=== PATIENT | male | born 1965 ===

== ENCOUNTER 2020-12-31 02:28 | Inpatient (IN) | payer OTHER ==
[~2020-12-31] VITALS: Ht 175.3 cm; Wt 90.0 kg
[2020-12-31] MEDS ORDERED: KETOROLAC TROMETHAMINE 30 MG/ML VIAL IVP ONE (02:45)
[2020-12-31] MEDS ORDERED: ACETAMINOPHEN 500 MG TABLET PO ONE (02:45)
[2020-12-31] MEDS ORDERED: ONDANSETRON HCL 4 MG/2 ML VIAL IVP ONE (02:45)
[2020-12-31] MEDS ORDERED: SODIUM CHLORIDE 0.9% 1,000 ML IV ONE (02:45)
[2020-12-31] MEDS ORDERED: 0.9% SODIUM CHLORIDE 10 ML SYRINGE IVP PRN (02:45)
[2020-12-31 03:02] LABS: BASOPHILS % (AUTO) 0.4 % (0.0-2.0); EOSINOPHILS % (AUTO) 0.9 % (1.0-6.0); HEMOGLOBIN 14.8 g/dL (13.5-17.5); LYMPHOCYTES # (AUTO) 0.8 K/uL (1.0-4.8); LYMPHOCYTES % (AUTO) 15.4 % (22.0-44.0); MEAN CORPUSCULAR HEMOGLOBIN 29.3 pg (26.0-34.0); MEAN CORPUSCULAR HGB CONC 33.8 G/dL (31.0-37.0); MEAN CORPUSCULAR VOLUME 87 fL (80-100); MONOCYTES # (AUTO) 0.2 K/uL (0.1-1.0); MONOCYTES % (AUTO) 3.9 % (2.0-9.0); NEUTROPHILS # (AUTO) 4.2 K/uL (1.8-7.7); NEUTROPHILS % (AUTO) 79.4 % (40.0-70.0); PLATELET COUNT (AUTO) 175 K/uL (150-450); RED BLOOD CELL COUNT(AUTO) 5.07 MIL/uL (4.50-5.90); RED CELL DISTRIBUTION WIDTH 13.9 % (11.5-14.5)
[2020-12-31 03:08] LABS: ANION GAP 9 mmol/L (8-16); CALCIUM, TOTAL 8.1 mg/dL (8.8-10.5); CARBON DIOXIDE 27 mmol/L (22-29); CHLORIDE 103 mmol/L (98-107); CREATININE 1.24 mg/dL (0.60-1.30); GLOMERULAR FILTR. RATE CALC > 60 mL/min (>60); GLUCOSE,RANDOM 108 mg/dL (70-110); POTASSIUM 4.1 mmol/L (3.5-5.1); SODIUM SERUM 139 mmol/L (136-145); UREA NITROGEN, BLOOD 18 mg/dL (7-18)
[2020-12-31] MEDS ORDERED: ONDANSETRON HCL 4 MG/2 ML VIAL IVP PRN ×2 (03:15→04:15)
[2020-12-31] MEDS ORDERED: ACETAMINOPHEN 325 MG TABLET PO PRN (03:15)
[2020-12-31 03:21] LABS: LACTIC ACID 0.7 mmol/L (0.4-2.0)
[2020-12-31 03:25] LABS: D-DIMER 0.5 mg/L FEU (0.00-0.50); INR 0.9 (0.9-1.1)
[2020-12-31 03:26] LABS: COVID AG,FIA SOURCE NASOPHARYNGEAL
[2020-12-31 03:27] LABS: ALANINE AMINOTRANSFERASE 17 U/L (12-78); ALKALINE PHOSPHATASE 97 U/L (46-116); ASPARTATE AMINOTRANSFERASE 17 U/L (15-37); BILIRUBIN,TOTAL 0.3 mg/dL (0.1-1.0); C-REACTIVE PROTEIN QUANT 8.34 mg/dL (0.00-0.30); FERRITIN 199 ng/mL (26-388); LACTATE DEHYDROGENASE 211 U/L (85-227); TOTAL PROTEIN, SERUM 7.1 g/dL (6.4-8.2)
[2020-12-31 03:32] LABS: B-TYPE NATRIURETIC PEPTIDE 8 pg/mL (0-100)
[2020-12-31 03:46] LABS: CREATINE KINASE, TOTAL ONLY 58 U/L (39-308)
[2020-12-31 05:13] LABS: AMPHET/METH SCREEN,URINE NEGATIVE (NEGATIVE); BARBITURATE SCREEN, URINE NEGATIVE (NEGATIVE); BENZODIAZEPINES SCREEN,URINE NEGATIVE (NEGATIVE); CANNABINOID SCREEN,URINE NEGATIVE (NEGATIVE); COCAINE SCREEN,URINE NEGATIVE (NEGATIVE); METHADONE SCREEN, URINE NEGATIVE (NEGATIVE); OPIATE SCREEN,URINE NEGATIVE (NEGATIVE)
[2020-12-31 05:19] LABS: APPEARANCE,URINE CLEAR (CLEAR); BILIRUBIN,URINE NEGATIVE (NEGATIVE); GLUCOSE, URINE (UA) NEGATIVE (NEGATIVE); KETONES,URINE NEGATIVE (NEGATIVE); LEUKOCYTE ESTERASE ,URINE NEGATIVE (NEGATIVE); NITRATE,URINE NEGATIVE (NEGATIVE); OCCULT BLOOD,URINE TRACE (NEGATIVE); PROTEIN,URINE NEGATIVE (NEGATIVE); UROBILINOGEN,URINE 0.2 mg/dL (<=1.0)
[2020-12-31 05:26] LABS: PHENCYCLIDINE SCREEN,URINE NEGATIVE (NEGATIVE)
[2020-12-31 05:40] LABS: RBC,URINE 0-2 /HPF (0-2)
[2020-12-31 05:41] LABS: BACTERIA,URINE None Seen /HPF (None Seen); WBC,URINE None Seen /HPF (0-5)
[2020-12-31] MEDS ORDERED: HEPARIN SODIUM,PORCINE 5,000 UNITS/ML VIAL SQ SCH (08:00)
[2020-12-31] MEDS: ACETAMINOPHEN 325 MG TABLET PO PRN ×3 (09:24→20:32)
[2020-12-31 09:59] VITALS: BP 90/59
[2020-12-31] MEDS ORDERED: HEPARIN SODIUM,PORCINE 5,000 UNITS/ML VIAL IVP PRN (10:15)
[2020-12-31 10:58] LABS: BASOPHILS % (AUTO) 0.4 % (0.0-2.0); EOSINOPHILS % (AUTO) 0.7 % (1.0-6.0); HEMATOCRIT 42.7 % (41-53); HEMOGLOBIN 14.2 g/dL (13.5-17.5); LYMPHOCYTES # (AUTO) 0.9 K/uL (1.0-4.8); LYMPHOCYTES % (AUTO) 15.3 % (22.0-44.0); MEAN CORPUSCULAR HEMOGLOBIN 29.1 pg (26.0-34.0); MEAN CORPUSCULAR HGB CONC 33.3 G/dL (31.0-37.0); MEAN CORPUSCULAR VOLUME 87 fL (80-100); MONOCYTES # (AUTO) 0.3 K/uL (0.1-1.0); MONOCYTES % (AUTO) 5.1 % (2.0-9.0); NEUTROPHILS # (AUTO) 4.5 K/uL (1.8-7.7); NEUTROPHILS % (AUTO) 78.5 % (40.0-70.0); PLATELET COUNT (AUTO) 171 K/uL (150-450); RED BLOOD CELL COUNT(AUTO) 4.89 MIL/uL (4.50-5.90); RED CELL DISTRIBUTION WIDTH 14.5 % (11.5-14.5)
[2020-12-31] MEDS ORDERED: REMDESIVIR 200 MG in SODIUM CHLORIDE 0.9% 250 ML IV ONE (11:00)
[2020-12-31 11:13] LABS: INR 0.9 (0.9-1.1); PROTHROMBIN TIME 10.1 SEC (9.4-11.6)
[2020-12-31] MEDS: HEPARIN SODIUM 25000 UNITS/D5W 250 ML IV PRN ×2 (11:26→17:43)
[2020-12-31] MEDS ORDERED: DEXAMETHASONE 4 MG TABLET PO ONE (15:15)
[2020-12-31] MEDS: HEPARIN SODIUM,PORCINE 5,000 UNITS/ML VIAL IVP PRN (17:41)
[2020-12-31 20:30] VITALS: BP 128/63
[2021-01-01] MEDS: MELATONIN 3 MG TABLET PO PRN ×2 (00:45→21:19)
[2021-01-01 05:01] VITALS: BP 124/82
[2021-01-01 06:44] LABS: BASOPHILS % (AUTO) 0.1 % (0.0-2.0); EOSINOPHILS % (AUTO) 0 % (1.0-6.0); HEMATOCRIT 44.2 % (41-53); HEMOGLOBIN 14.9 g/dL (13.5-17.5); LYMPHOCYTES # (AUTO) 0.6 K/uL (1.0-4.8); LYMPHOCYTES % (AUTO) 11.7 % (22.0-44.0); MEAN CORPUSCULAR HGB CONC 33.6 G/dL (31.0-37.0); MEAN CORPUSCULAR VOLUME 86 fL (80-100); MONOCYTES # (AUTO) 0.1 K/uL (0.1-1.0); MONOCYTES % (AUTO) 2.2 % (2.0-9.0); NEUTROPHILS # (AUTO) 4.4 K/uL (1.8-7.7); PLATELET COUNT (AUTO) 213 K/uL (150-450); RED BLOOD CELL COUNT(AUTO) 5.12 MIL/uL (4.50-5.90); RED CELL DISTRIBUTION WIDTH 14.2 % (11.5-14.5)
[2021-01-01 06:58] LABS: D-DIMER 0.3 mg/L FEU (0.00-0.50)
[2021-01-01 07:18] LABS: ALANINE AMINOTRANSFERASE 18 U/L (12-78); ALBUMIN 2.5 g/dL (3.4-5.0); ALKALINE PHOSPHATASE 91 U/L (46-116); ANION GAP 11 mmol/L (8-16); ASPARTATE AMINOTRANSFERASE 15 U/L (15-37); BILIRUBIN,TOTAL 0.2 mg/dL (0.1-1.0); C-REACTIVE PROTEIN QUANT 13.92 mg/dL (0.00-0.30); CALCIUM, TOTAL 8.4 mg/dL (8.8-10.5); CARBON DIOXIDE 27 mmol/L (22-29); CHLORIDE 105 mmol/L (98-107); CREATININE 0.93 mg/dL (0.60-1.30); FERRITIN 236 ng/mL (26-388); GLOMERULAR FILTR. RATE CALC > 60 mL/min (>60); GLUCOSE,RANDOM 143 mg/dL (70-110); LACTATE DEHYDROGENASE 194 U/L (85-227); POTASSIUM 4.6 mmol/L (3.5-5.1); SODIUM SERUM 143 mmol/L (136-145); UREA NITROGEN, BLOOD 16 mg/dL (7-18)
[2021-01-01] MEDS: DEXAMETHASONE 4 MG TABLET PO SCH (08:02)
[2021-01-01] MEDS: HEPARIN SODIUM 25000 UNITS/D5W 250 ML IV PRN ×2 (08:03→17:10)
[2021-01-01 08:09] VITALS: BP 113/72
[2021-01-01] MEDS: DOCUSATE SODIUM 100 MG CAPSULE PO PRN ×2 (10:26→21:19)
[2021-01-01] MEDS: BENZONATATE 100 MG CAPSULE PO PRN ×2 (10:26→21:19)
[2021-01-01] MEDS: REMDESIVIR 100 MG in SODIUM CHLORIDE 0.9% 250 ML IV SCH (10:26)
[2021-01-01] MEDS: HEPARIN SODIUM,PORCINE 5,000 UNITS/ML VIAL IVP PRN (16:59)
[2021-01-01 19:55] VITALS: BP_SYST 123; BP_SYST 133; BP_DIAS 75; BP_DIAS 82
[2021-01-01] MEDS: FAMOTIDINE 20 MG TABLET PO SCH (21:15)
[2021-01-01] MEDS: ACETAMINOPHEN 325 MG TABLET PO PRN (21:20)
[2021-01-02] MEDS: HEPARIN SODIUM,PORCINE 5,000 UNITS/ML VIAL IVP PRN ×3 (00:37→18:18)
[2021-01-02] MEDS: HEPARIN SODIUM 25000 UNITS/D5W 250 ML IV PRN ×3 (00:38→18:28)
[2021-01-02] MEDS: ACETAMINOPHEN 325 MG TABLET PO PRN ×3 (03:28→18:21)
[2021-01-02 04:00] VITALS: BP 117/80
[2021-01-02 06:50] LABS: BASOPHILS % (AUTO) 0.4 % (0.0-2.0); EOSINOPHILS % (AUTO) 0 % (1.0-6.0); HEMATOCRIT 43.8 % (41-53); HEMOGLOBIN 14.8 g/dL (13.5-17.5); LYMPHOCYTES # (AUTO) 0.8 K/uL (1.0-4.8); LYMPHOCYTES % (AUTO) 7.6 % (22.0-44.0); MEAN CORPUSCULAR HEMOGLOBIN 29.3 pg (26.0-34.0); MEAN CORPUSCULAR HGB CONC 33.7 G/dL (31.0-37.0); MEAN CORPUSCULAR VOLUME 87 fL (80-100); MONOCYTES # (AUTO) 0.4 K/uL (0.1-1.0); MONOCYTES % (AUTO) 4.1 % (2.0-9.0); NEUTROPHILS # (AUTO) 9.1 K/uL (1.8-7.7); PLATELET COUNT (AUTO) 259 K/uL (150-450); RED BLOOD CELL COUNT(AUTO) 5.04 MIL/uL (4.50-5.90); RED CELL DISTRIBUTION WIDTH 14.2 % (11.5-14.5)
[2021-01-02 06:57] LABS: NEUTROPHILS % (AUTO) 87.9 % (40.0-70.0)
[2021-01-02 07:17] LABS: ALANINE AMINOTRANSFERASE 18 U/L (12-78); ALBUMIN 2.6 g/dL (3.4-5.0); ALKALINE PHOSPHATASE 84 U/L (46-116); ANION GAP 8 mmol/L (8-16); ASPARTATE AMINOTRANSFERASE 13 U/L (15-37); BILIRUBIN,TOTAL 0.1 mg/dL (0.1-1.0); C-REACTIVE PROTEIN QUANT 6.01 mg/dL (0.00-0.30); CALCIUM, TOTAL 8.5 mg/dL (8.8-10.5); CARBON DIOXIDE 27 mmol/L (22-29); CHLORIDE 107 mmol/L (98-107); CREATININE 0.93 mg/dL (0.60-1.30); FERRITIN 261 ng/mL (26-388); GLOMERULAR FILTR. RATE CALC > 60 mL/min (>60); GLUCOSE,RANDOM 132 mg/dL (70-110); LACTATE DEHYDROGENASE 172 U/L (85-227); POTASSIUM 4.1 mmol/L (3.5-5.1); SODIUM SERUM 142 mmol/L (136-145); TOTAL PROTEIN, SERUM 6.9 g/dL (6.4-8.2); UREA NITROGEN, BLOOD 19 mg/dL (7-18)
[2021-01-02] MEDS: BENZONATATE 100 MG CAPSULE PO PRN (08:31)
[2021-01-02] MEDS: DOCUSATE SODIUM 100 MG CAPSULE PO PRN (08:31)
[2021-01-02] MEDS: FAMOTIDINE 20 MG TABLET PO SCH ×2 (08:31→20:32)
[2021-01-02] MEDS: DEXAMETHASONE 4 MG TABLET PO SCH (08:31)
[2021-01-02 08:36] VITALS: BP 127/86
[2021-01-02 08:51] LABS: D-DIMER 0.26 mg/L FEU (0.00-0.50)
[2021-01-02] MEDS: REMDESIVIR 100 MG in SODIUM CHLORIDE 0.9% 250 ML IV SCH (11:37)
[2021-01-02] MEDS: BISACODYL 5 MG EC TABLET PO PRN (13:18)
[2021-01-02] MEDS: GABAPENTIN 300 MG CAPSULE PO SCH (20:32)
[2021-01-02 20:42] VITALS: BP 124/68
[2021-01-03 04:28] VITALS: BP 112/62
[2021-01-03] MEDS: HEPARIN SODIUM 25000 UNITS/D5W 250 ML IV PRN ×3 (05:24→20:24)
[2021-01-03 06:51] LABS: BASOPHILS % (AUTO) 0.2 % (0.0-2.0); EOSINOPHILS % (AUTO) 0 % (1.0-6.0); HEMATOCRIT 42.9 % (41-53); HEMOGLOBIN 14.4 g/dL (13.5-17.5); LYMPHOCYTES # (AUTO) 1.2 K/uL (1.0-4.8); LYMPHOCYTES % (AUTO) 11.6 % (22.0-44.0); MEAN CORPUSCULAR HEMOGLOBIN 28.9 pg (26.0-34.0); MEAN CORPUSCULAR HGB CONC 33.6 G/dL (31.0-37.0); MEAN CORPUSCULAR VOLUME 86 fL (80-100); MONOCYTES # (AUTO) 0.6 K/uL (0.1-1.0); MONOCYTES % (AUTO) 5.8 % (2.0-9.0); NEUTROPHILS # (AUTO) 8.8 K/uL (1.8-7.7); NEUTROPHILS % (AUTO) 82.4 % (40.0-70.0); PLATELET COUNT (AUTO) 283 K/uL (150-450); RED BLOOD CELL COUNT(AUTO) 4.99 MIL/uL (4.50-5.90); RED CELL DISTRIBUTION WIDTH 14.1 % (11.5-14.5)
[2021-01-03 07:04] LABS: D-DIMER 0.26 mg/L FEU (0.00-0.50)
[2021-01-03 07:21] LABS: ALANINE AMINOTRANSFERASE 25 U/L (12-78); ALBUMIN 2.5 g/dL (3.4-5.0); ALKALINE PHOSPHATASE 77 U/L (46-116); ANION GAP 9 mmol/L (8-16); ASPARTATE AMINOTRANSFERASE 20 U/L (15-37); BILIRUBIN,TOTAL 0.2 mg/dL (0.1-1.0); C-REACTIVE PROTEIN QUANT 2.21 mg/dL (0.00-0.30); CALCIUM, TOTAL 8.4 mg/dL (8.8-10.5); CARBON DIOXIDE 27 mmol/L (22-29); CHLORIDE 107 mmol/L (98-107); FERRITIN 219 ng/mL (26-388); GLOMERULAR FILTR. RATE CALC > 60 mL/min (>60); GLUCOSE,RANDOM 119 mg/dL (70-110); LACTATE DEHYDROGENASE 187 U/L (85-227); POTASSIUM 4.2 mmol/L (3.5-5.1); SODIUM SERUM 143 mmol/L (136-145); TOTAL PROTEIN, SERUM 6.6 g/dL (6.4-8.2); UREA NITROGEN, BLOOD 20 mg/dL (7-18)
[2021-01-03] MEDS: DEXAMETHASONE 4 MG TABLET PO SCH (08:04)
[2021-01-03] MEDS: FAMOTIDINE 20 MG TABLET PO SCH ×2 (08:04→20:17)
[2021-01-03] MEDS: HEPARIN SODIUM,PORCINE 5,000 UNITS/ML VIAL IVP PRN (08:09)
[2021-01-03 08:21] VITALS: BP 127/69
[2021-01-03] MEDS: REMDESIVIR 100 MG in SODIUM CHLORIDE 0.9% 250 ML IV SCH (11:07)
[2021-01-03] MEDS ORDERED: MULTIVITAMINS, THERAPEUTIC TABLET PO ONE (14:45)
[2021-01-03] MEDS: DOCUSATE SODIUM 100 MG CAPSULE PO PRN (20:16)
[2021-01-03] MEDS: GABAPENTIN 300 MG CAPSULE PO SCH (20:17)
[2021-01-03 20:50] VITALS: BP 132/78
[2021-01-03] MEDS: ACETAMINOPHEN 325 MG TABLET PO PRN (21:03)
[2021-01-04 06:41] LABS: BASOPHILS % (AUTO) 0.1 % (0.0-2.0); EOSINOPHILS % (AUTO) 0.1 % (1.0-6.0); HEMATOCRIT 44.7 % (41-53); HEMOGLOBIN 14.7 g/dL (13.5-17.5); LYMPHOCYTES # (AUTO) 1.7 K/uL (1.0-4.8); LYMPHOCYTES % (AUTO) 14.6 % (22.0-44.0); MEAN CORPUSCULAR HEMOGLOBIN 28.5 pg (26.0-34.0); MEAN CORPUSCULAR HGB CONC 32.9 G/dL (31.0-37.0); MEAN CORPUSCULAR VOLUME 86 fL (80-100); MONOCYTES % (AUTO) 8.7 % (2.0-9.0); NEUTROPHILS # (AUTO) 8.9 K/uL (1.8-7.7); NEUTROPHILS % (AUTO) 76.5 % (40.0-70.0); PLATELET COUNT (AUTO) 335 K/uL (150-450); RED BLOOD CELL COUNT(AUTO) 5.17 MIL/uL (4.50-5.90)
[2021-01-04 06:51] LABS: D-DIMER 0.2 mg/L FEU (0.00-0.50)
[2021-01-04 07:05] LABS: ALANINE AMINOTRANSFERASE 74 U/L (12-78); ALBUMIN 2.5 g/dL (3.4-5.0); ALKALINE PHOSPHATASE 80 U/L (46-116); ANION GAP 7 mmol/L (8-16); ASPARTATE AMINOTRANSFERASE 41 U/L (15-37); BILIRUBIN,TOTAL 0.2 mg/dL (0.1-1.0); C-REACTIVE PROTEIN QUANT 0.96 mg/dL (0.00-0.30); CALCIUM, TOTAL 8.3 mg/dL (8.8-10.5); CARBON DIOXIDE 29 mmol/L (22-29); CHLORIDE 106 mmol/L (98-107); FERRITIN 180 ng/mL (26-388); GLOMERULAR FILTR. RATE CALC > 60 mL/min (>60); GLUCOSE,RANDOM 116 mg/dL (70-110); LACTATE DEHYDROGENASE 156 U/L (85-227); POTASSIUM 4.2 mmol/L (3.5-5.1); SODIUM SERUM 142 mmol/L (136-145); TOTAL PROTEIN, SERUM 6.4 g/dL (6.4-8.2); UREA NITROGEN, BLOOD 24 mg/dL (7-18)
[2021-01-04 08:16] VITALS: BP 115/76
[2021-01-04] MEDS: MULTIVITAMINS, THERAPEUTIC TABLET PO SCH (09:33)
[2021-01-04] MEDS: FAMOTIDINE 20 MG TABLET PO SCH ×2 (09:33→20:00)
[2021-01-04] MEDS: DEXAMETHASONE 4 MG TABLET PO SCH (09:33)
[2021-01-04] MEDS: HEPARIN SODIUM 25000 UNITS/D5W 250 ML IV PRN (09:39)
[2021-01-04] MEDS: DOCUSATE SODIUM 100 MG CAPSULE PO PRN ×2 (10:32→20:00)
[2021-01-04] MEDS: BISACODYL 5 MG EC TABLET PO PRN (10:32)
[2021-01-04] MEDS: GABAPENTIN 300 MG CAPSULE PO SCH (20:00)
[2021-01-04 20:19] VITALS: BP 140/83
[2021-01-05] MEDS: HEPARIN SODIUM 25000 UNITS/D5W 250 ML IV PRN ×2 (00:03→15:48)
[2021-01-05 05:01] VITALS: BP 124/72
[2021-01-05 07:33] VITALS: BP 101/55
[2021-01-05] MEDS: FAMOTIDINE 20 MG TABLET PO SCH ×2 (09:00→20:29)
[2021-01-05] MEDS: DEXAMETHASONE 4 MG TABLET PO SCH (09:00)
[2021-01-05] MEDS: MULTIVITAMINS, THERAPEUTIC TABLET PO SCH (09:00)
[2021-01-05] MEDS: GABAPENTIN 300 MG CAPSULE PO SCH (20:29)
[2021-01-05 20:37] VITALS: BP 130/74
[2021-01-06 06:06] VITALS: BP 132/83
[2021-01-06 07:38] VITALS: BP 121/80
[2021-01-06] MEDS: FAMOTIDINE 20 MG TABLET PO SCH ×2 (08:31→20:21)
[2021-01-06] MEDS: MULTIVITAMINS, THERAPEUTIC TABLET PO SCH (08:31)
[2021-01-06] MEDS: DEXAMETHASONE 4 MG TABLET PO SCH (08:31)
[2021-01-06] MEDS: HEPARIN SODIUM 25000 UNITS/D5W 250 ML IV PRN (08:33)
[2021-01-06 15:40] VITALS: BP 127/78
[2021-01-06 20:15] VITALS: BP 131/88
[2021-01-06] MEDS: GABAPENTIN 300 MG CAPSULE PO SCH (20:21)
[2021-01-06] MEDS: APIXABAN 2.5 MG TABLET PO SCH (20:21)
[2021-01-06] MEDS: MELATONIN 3 MG TABLET PO PRN (20:26)
[2021-01-07 05:21] VITALS: BP 126/82
[2021-01-07 08:09] VITALS: BP 124/58
[2021-01-07] MEDS: APIXABAN 2.5 MG TABLET PO SCH ×2 (08:30→20:38)
[2021-01-07] MEDS: MULTIVITAMINS, THERAPEUTIC TABLET PO SCH (08:31)
[2021-01-07] MEDS: FAMOTIDINE 20 MG TABLET PO SCH ×2 (08:31→20:38)
[2021-01-07] MEDS: DEXAMETHASONE 4 MG TABLET PO SCH (08:31)
[2021-01-07] MEDS: ACETAMINOPHEN 325 MG TABLET PO PRN (16:11)
[2021-01-07 20:23] VITALS: BP 119/67
[2021-01-07] MEDS: GABAPENTIN 300 MG CAPSULE PO SCH (20:38)
[2021-01-07] MEDS: MELATONIN 3 MG TABLET PO PRN (20:44)
[2021-01-08 05:10] VITALS: BP 116/75
[2021-01-08 07:39] VITALS: BP 105/63
[2021-01-08] MEDS: APIXABAN 2.5 MG TABLET PO SCH ×2 (08:49→20:52)
[2021-01-08] MEDS: DEXAMETHASONE 4 MG TABLET PO SCH (08:49)
[2021-01-08] MEDS: MULTIVITAMINS, THERAPEUTIC TABLET PO SCH (08:49)
[2021-01-08] MEDS: FAMOTIDINE 20 MG TABLET PO SCH ×2 (08:49→20:52)
[2021-01-08 20:38] VITALS: BP 127/77
[2021-01-08] MEDS: GABAPENTIN 300 MG CAPSULE PO SCH (20:52)
[2021-01-09 07:32] LABS: BASOPHILS % (AUTO) 0.5 % (0.0-2.0); EOSINOPHILS % (AUTO) 0.2 % (1.0-6.0); HEMATOCRIT 47.7 % (41-53); HEMOGLOBIN 15.8 g/dL (13.5-17.5); LYMPHOCYTES # (AUTO) 1.6 K/uL (1.0-4.8); LYMPHOCYTES % (AUTO) 8.8 % (22.0-44.0); MEAN CORPUSCULAR HEMOGLOBIN 28.9 pg (26.0-34.0); MEAN CORPUSCULAR HGB CONC 33.1 G/dL (31.0-37.0); MEAN CORPUSCULAR VOLUME 87 fL (80-100); MONOCYTES # (AUTO) 1.5 K/uL (0.1-1.0); MONOCYTES % (AUTO) 8.4 % (2.0-9.0); NEUTROPHILS # (AUTO) 15.1 K/uL (1.8-7.7); NEUTROPHILS % (AUTO) 82.1 % (40.0-70.0); PLATELET COUNT (AUTO) 409 K/uL (150-450); RED BLOOD CELL COUNT(AUTO) 5.47 MIL/uL (4.50-5.90); RED CELL DISTRIBUTION WIDTH 14.3 % (11.5-14.5)
[2021-01-09 07:56] LABS: ALANINE AMINOTRANSFERASE 76 U/L (12-78); ALBUMIN 2.6 g/dL (3.4-5.0); ALKALINE PHOSPHATASE 94 U/L (46-116); ANION GAP 4 mmol/L (8-16); ASPARTATE AMINOTRANSFERASE 15 U/L (15-37); BILIRUBIN,TOTAL 0.4 mg/dL (0.1-1.0); CALCIUM, TOTAL 8.6 mg/dL (8.8-10.5); CARBON DIOXIDE 32 mmol/L (22-29); CHLORIDE 101 mmol/L (98-107); CREATININE 1.07 mg/dL (0.60-1.30); GLOMERULAR FILTR. RATE CALC > 60 mL/min (>60); GLUCOSE,RANDOM 114 mg/dL (70-110); POTASSIUM 4.9 mmol/L (3.5-5.1); SODIUM SERUM 137 mmol/L (136-145); TOTAL PROTEIN, SERUM 6.4 g/dL (6.4-8.2); UREA NITROGEN, BLOOD 23 mg/dL (7-18)
[2021-01-09 08:09] VITALS: BP 114/52
[2021-01-09] MEDS: APIXABAN 2.5 MG TABLET PO SCH ×2 (09:00→21:27)
[2021-01-09] MEDS: DEXAMETHASONE 4 MG TABLET PO SCH (09:00)
[2021-01-09] MEDS: MULTIVITAMINS, THERAPEUTIC TABLET PO SCH (09:00)
[2021-01-09] MEDS: FAMOTIDINE 20 MG TABLET PO SCH ×2 (09:00→21:27)
[2021-01-09 20:06] VITALS: BP 117/62
[2021-01-09] MEDS: GABAPENTIN 300 MG CAPSULE PO SCH (21:27)
[2021-01-09] MEDS: BISACODYL 5 MG EC TABLET PO PRN (21:40)
[2021-01-10 05:31] VITALS: BP 102/59
[2021-01-10 06:45] LABS: BASOPHILS % (AUTO) 0.1 % (0.0-2.0); EOSINOPHILS % (AUTO) 1.6 % (1.0-6.0); HEMATOCRIT 45.8 % (41-53); HEMOGLOBIN 15.2 g/dL (13.5-17.5); LYMPHOCYTES % (AUTO) 16.9 % (22.0-44.0); MEAN CORPUSCULAR HEMOGLOBIN 28.9 pg (26.0-34.0); MEAN CORPUSCULAR HGB CONC 33.2 G/dL (31.0-37.0); MEAN CORPUSCULAR VOLUME 87 fL (80-100); MONOCYTES % (AUTO) 8.4 % (2.0-9.0); NEUTROPHILS # (AUTO) 8.6 K/uL (1.8-7.7); PLATELET COUNT (AUTO) 371 K/uL (150-450); RED BLOOD CELL COUNT(AUTO) 5.26 MIL/uL (4.50-5.90); RED CELL DISTRIBUTION WIDTH 14.2 % (11.5-14.5)
[2021-01-10 07:13] LABS: ALANINE AMINOTRANSFERASE 62 U/L (12-78); ALBUMIN 2.4 g/dL (3.4-5.0); ALKALINE PHOSPHATASE 87 U/L (46-116); ANION GAP 8 mmol/L (8-16); ASPARTATE AMINOTRANSFERASE 12 U/L (15-37); BILIRUBIN,TOTAL 0.3 mg/dL (0.1-1.0); CALCIUM, TOTAL 8.2 mg/dL (8.8-10.5); CARBON DIOXIDE 28 mmol/L (22-29); CHLORIDE 101 mmol/L (98-107); CREATININE 0.94 mg/dL (0.60-1.30); GLOMERULAR FILTR. RATE CALC > 60 mL/min (>60); GLUCOSE,RANDOM 94 mg/dL (70-110); POTASSIUM 4.5 mmol/L (3.5-5.1); SODIUM SERUM 137 mmol/L (136-145); UREA NITROGEN, BLOOD 24 mg/dL (7-18)
[2021-01-10 07:29] VITALS: BP 106/59
[2021-01-10] MEDS: DEXAMETHASONE 4 MG TABLET PO SCH (08:27)
[2021-01-10] MEDS: FAMOTIDINE 20 MG TABLET PO SCH ×2 (08:27→21:13)
[2021-01-10] MEDS: APIXABAN 2.5 MG TABLET PO SCH ×2 (08:27→21:13)
[2021-01-10] MEDS: MULTIVITAMINS, THERAPEUTIC TABLET PO SCH (08:27)
[2021-01-10] MEDS: ACETAMINOPHEN 325 MG TABLET PO PRN (08:38)
[2021-01-10] MEDS: GABAPENTIN 300 MG CAPSULE PO SCH (21:13)
[2021-01-10 21:15] VITALS: BP 116/78
[2021-01-11 04:00] VITALS: BP 112/72
[2021-01-11 05:50] LABS: BASOPHILS % (AUTO) 0.2 % (0.0-2.0); EOSINOPHILS % (AUTO) 0 % (1.0-6.0); HEMATOCRIT 46.7 % (41-53); HEMOGLOBIN 15.5 g/dL (13.5-17.5); LYMPHOCYTES # (AUTO) 0.9 K/uL (1.0-4.8); LYMPHOCYTES % (AUTO) 5.4 % (22.0-44.0); MEAN CORPUSCULAR HEMOGLOBIN 28.7 pg (26.0-34.0); MEAN CORPUSCULAR HGB CONC 33.2 G/dL (31.0-37.0); MEAN CORPUSCULAR VOLUME 87 fL (80-100); MONOCYTES # (AUTO) 0.9 K/uL (0.1-1.0); MONOCYTES % (AUTO) 5.7 % (2.0-9.0); NEUTROPHILS # (AUTO) 14.5 K/uL (1.8-7.7); PLATELET COUNT (AUTO) 369 K/uL (150-450); RED CELL DISTRIBUTION WIDTH 14.3 % (11.5-14.5)
[2021-01-11 05:53] LABS: NEUTROPHILS % (AUTO) 88.7 % (40.0-70.0)
[2021-01-11 05:59] LABS: ANION GAP 6 mmol/L (8-16); CARBON DIOXIDE 30 mmol/L (22-29); CHLORIDE 101 mmol/L (98-107); CREATININE 0.96 mg/dL (0.60-1.30); GLUCOSE,RANDOM 117 mg/dL (70-110); POTASSIUM 4.4 mmol/L (3.5-5.1); SODIUM SERUM 137 mmol/L (136-145); UREA NITROGEN, BLOOD 18 mg/dL (7-18)
[2021-01-11 06:00] LABS: CALCIUM, TOTAL 8.6 mg/dL (8.8-10.5); GLOMERULAR FILTR. RATE CALC > 60 mL/min (>60)
[2021-01-11] MEDS: ACETAMINOPHEN 325 MG TABLET PO PRN (06:01)
[2021-01-11] MEDS: BISACODYL 5 MG EC TABLET PO PRN (06:02)
[2021-01-11 08:38] VITALS: BP 131/80
[2021-01-11] MEDS: FAMOTIDINE 20 MG TABLET PO SCH ×2 (08:38→20:55)
[2021-01-11] MEDS: APIXABAN 2.5 MG TABLET PO SCH ×2 (08:38→20:55)
[2021-01-11] MEDS: MULTIVITAMINS, THERAPEUTIC TABLET PO SCH (08:38)
[2021-01-11] MEDS: DEXAMETHASONE 4 MG TABLET PO SCH (08:39)
[2021-01-11 16:58] VITALS: BP 127/80
[2021-01-11 20:30] VITALS: BP 132/90
[2021-01-11] MEDS: GABAPENTIN 300 MG CAPSULE PO SCH (20:55)
[2021-01-12 05:40] VITALS: BP 161/96
[2021-01-12 08:10] VITALS: BP 129/87
[2021-01-12] MEDS: APIXABAN 2.5 MG TABLET PO SCH ×2 (08:30→20:30)
[2021-01-12] MEDS: FAMOTIDINE 20 MG TABLET PO SCH ×2 (08:30→20:30)
[2021-01-12] MEDS: MULTIVITAMINS, THERAPEUTIC TABLET PO SCH (08:32)
[2021-01-12] MEDS: BISACODYL 5 MG EC TABLET PO PRN (08:40)
[2021-01-12 16:16] VITALS: BP 137/86
[2021-01-12 20:10] VITALS: BP 122/72
[2021-01-12] MEDS: GABAPENTIN 300 MG CAPSULE PO SCH (20:30)
[2021-01-13 04:45] VITALS: BP 134/85
[2021-01-13 07:37] VITALS: BP 128/84
[2021-01-13] MEDS: FAMOTIDINE 20 MG TABLET PO SCH ×2 (08:14→20:07)
[2021-01-13] MEDS: MULTIVITAMINS, THERAPEUTIC TABLET PO SCH (08:14)
[2021-01-13] MEDS: APIXABAN 2.5 MG TABLET PO SCH ×2 (08:14→20:07)
[2021-01-13] MEDS: BISACODYL 5 MG EC TABLET PO PRN (08:15)
[2021-01-13 20:00] VITALS: BP 116/67
[2021-01-13] MEDS: GABAPENTIN 300 MG CAPSULE PO SCH (20:07)
[2021-01-14 05:05] VITALS: BP 127/89
[2021-01-14] MEDS: BISACODYL 5 MG EC TABLET PO PRN (05:42)
[2021-01-14] MEDS: MULTIVITAMINS, THERAPEUTIC TABLET PO SCH (07:52)
[2021-01-14] MEDS: APIXABAN 2.5 MG TABLET PO SCH ×2 (07:52→20:23)
[2021-01-14] MEDS: FAMOTIDINE 20 MG TABLET PO SCH ×2 (07:52→20:23)
[2021-01-14] MEDS: DOCUSATE SODIUM 100 MG CAPSULE PO PRN (08:01)
[2021-01-14] MEDS: ACETAMINOPHEN 325 MG TABLET PO PRN ×2 (08:01→16:23)
[2021-01-14 08:23] VITALS: BP 123/81
[2021-01-14 12:21] LABS: BASOPHILS % (AUTO) 0.5 % (0.0-2.0); EOSINOPHILS % (AUTO) 1.8 % (1.0-6.0); HEMATOCRIT 48.4 % (41-53); LYMPHOCYTES # (AUTO) 1.6 K/uL (1.0-4.8); MEAN CORPUSCULAR HEMOGLOBIN 28.9 pg (26.0-34.0); MEAN CORPUSCULAR VOLUME 88 fL (80-100); MONOCYTES # (AUTO) 0.9 K/uL (0.1-1.0); MONOCYTES % (AUTO) 9.1 % (2.0-9.0); NEUTROPHILS # (AUTO) 7.2 K/uL (1.8-7.7); NEUTROPHILS % (AUTO) 72.6 % (40.0-70.0); PLATELET COUNT (AUTO) 325 K/uL (150-450); RED BLOOD CELL COUNT(AUTO) 5.52 MIL/uL (4.50-5.90); RED CELL DISTRIBUTION WIDTH 14.7 % (11.5-14.5)
[2021-01-14 12:31] LABS: ANION GAP 8 mmol/L (8-16); CALCIUM, TOTAL 8.5 mg/dL (8.8-10.5); CARBON DIOXIDE 30 mmol/L (22-29); CHLORIDE 103 mmol/L (98-107); CREATININE 1.11 mg/dL (0.60-1.30); GLOMERULAR FILTR. RATE CALC > 60 mL/min (>60); GLUCOSE,RANDOM 113 mg/dL (70-110); POTASSIUM 4.2 mmol/L (3.5-5.1); SODIUM SERUM 141 mmol/L (136-145); UREA NITROGEN, BLOOD 22 mg/dL (7-18)
[2021-01-14 12:37] LABS: ALANINE AMINOTRANSFERASE 69 U/L (12-78); ALBUMIN 2.7 g/dL (3.4-5.0); ALKALINE PHOSPHATASE 102 U/L (46-116); ASPARTATE AMINOTRANSFERASE 18 U/L (15-37); BILIRUBIN,TOTAL 0.4 mg/dL (0.1-1.0); TOTAL PROTEIN, SERUM 6.3 g/dL (6.4-8.2)
[2021-01-14 20:00] VITALS: BP 144/93
[2021-01-14] MEDS: GABAPENTIN 300 MG CAPSULE PO SCH (20:23)
[2021-01-15 05:00] VITALS: BP 117/74
[2021-01-15 06:29] LABS: BASOPHILS % (AUTO) 0.4 % (0.0-2.0); EOSINOPHILS % (AUTO) 3.2 % (1.0-6.0); HEMATOCRIT 44.9 % (41-53); HEMOGLOBIN 14.8 g/dL (13.5-17.5); LYMPHOCYTES # (AUTO) 1.4 K/uL (1.0-4.8); LYMPHOCYTES % (AUTO) 22.2 % (22.0-44.0); MEAN CORPUSCULAR HGB CONC 32.8 G/dL (31.0-37.0); MEAN CORPUSCULAR VOLUME 88 fL (80-100); MONOCYTES # (AUTO) 0.6 K/uL (0.1-1.0); MONOCYTES % (AUTO) 9.2 % (2.0-9.0); NEUTROPHILS # (AUTO) 4.2 K/uL (1.8-7.7); PLATELET COUNT (AUTO) 269 K/uL (150-450); RED BLOOD CELL COUNT(AUTO) 5.08 MIL/uL (4.50-5.90); RED CELL DISTRIBUTION WIDTH 15.1 % (11.5-14.5)
[2021-01-15 06:51] LABS: ALANINE AMINOTRANSFERASE 49 U/L (12-78); ALBUMIN 2.2 g/dL (3.4-5.0); ALKALINE PHOSPHATASE 85 U/L (46-116); ANION GAP 4 mmol/L (8-16); ASPARTATE AMINOTRANSFERASE 20 U/L (15-37); BILIRUBIN,TOTAL 0.5 mg/dL (0.1-1.0); CALCIUM, TOTAL 8.3 mg/dL (8.8-10.5); CARBON DIOXIDE 27 mmol/L (22-29); CHLORIDE 106 mmol/L (98-107); GLOMERULAR FILTR. RATE CALC > 60 mL/min (>60); GLUCOSE,RANDOM 90 mg/dL (70-110); POTASSIUM 5.2 mmol/L (3.5-5.1); SODIUM SERUM 137 mmol/L (136-145); TOTAL PROTEIN, SERUM 5.7 g/dL (6.4-8.2); UREA NITROGEN, BLOOD 20 mg/dL (7-18)
[2021-01-15 07:24] VITALS: BP 115/65
[2021-01-15] MEDS: MULTIVITAMINS, THERAPEUTIC TABLET PO SCH (08:47)
[2021-01-15] MEDS: APIXABAN 2.5 MG TABLET PO SCH (08:47)
[2021-01-15] MEDS: FAMOTIDINE 20 MG TABLET PO SCH (08:47)
[2021-01-15] MEDS: ACETAMINOPHEN 325 MG TABLET PO PRN (09:02)
== END 2021-01-15 21:13 | disposition left against medical advice (07) | DRG 871 ==
LOC: EMS 02:32 → 6N 06:00 → 6S 09:20
PROVIDERS: ADMIT Internal Medicine; ATTEND Internal Medicine
PROC: XW033E5 Introduction of Remdesivir Anti-infective into Peripheral Vein, Percutaneous Approach, New Technology Group 5 (ICD-10-PCS; 2020-12-31)
PROC: 5A09457 Assistance with Respiratory Ventilation, 24-96 Consecutive Hours, Continuous Positive Airway Pressure (ICD-10-PCS; principal; 2021-01-03)
PROC: 5A09557 Assistance with Respiratory Ventilation, Greater than 96 Consecutive Hours, Continuous Positive Airway Pressure (ICD-10-PCS; 2021-01-09)
DX: A41.89 Other specified sepsis (principal); J12.82 Pneumonia due to coronavirus disease 2019; U07.1 COVID-19; J80 Acute respiratory distress syndrome; D68.69 Other thrombophilia; R00.1 Bradycardia, unspecified; G47.33 Obstructive sleep apnea (adult) (pediatric); E66.3 Overweight; M54.30 Sciatica, unspecified side; K59.00 Constipation, unspecified; R79.82 Elevated C-reactive protein (CRP); Z53.29 Procedure and treatment not carried out because of patient's decision for other reasons; D72.810 Lymphocytopenia; F17.210 Nicotine dependence, cigarettes, uncomplicated; Z68.29 Body mass index [BMI] 29.0-29.9, adult
CPT/HCPCS: 71045; 80048; 80053; 81001; 82271; 82550; 82728; 83605; 83615; 83880; 84145; 84484; 85025; 85379; 85610; 85730; 86140; 87040; 93005; 93970; 94660; 99285; G0480; J1644; J1885; J2405; J7030; J7050; J8540; Q9967; 36415-L1; 36415-TC